=== PATIENT | male | born 1980 | race American Indian/Alaskan Native ===

== ENCOUNTER 2016-10-04 10:28 | Inpatient (IN) | payer OTHER ==
[2016-10-04 11:44] LABS: Hematocrit 45.7 % (35.5-45.6); Hemoglobin 15.2 gm/dl (11.8-15.2); Red Blood Count 4.44 M/mm3 (3.65-5.03); White Blood Count 5.5 K/mm3 (4.5-11.0)
[2016-10-04 11:45] LABS: Mean Corpuscular HGB Conc 33 % (32-34); Mean Corpuscular Hemoglobin 34 pg (28-32); Mean Corpuscular Volume 103 fl (84-94); Platelet Count 206 K/mm3 (140-440); Red Cell Distribution Width 14.5 % (13.2-15.2)
[2016-10-04 11:54] LABS: INR 0.99 (0.87-1.13); Partial Thromboplastin Time 26.4 Sec. (24.2-36.6)
[2016-10-04 11:55] LABS: Anion Gap 19 mmol/L; BUN/Creatinine Ratio 11.42; Blood Urea Nitrogen 8 mg/dL (9-20); Calcium 8.5 mg/dL (8.4-10.2); Carbon Dioxide 26 mmol/L (22-30); Chloride 102.6 mmol/L (98-107); Glucose 78 mg/dL (75-100); Potassium 4.4 mmol/L (3.6-5.0); Sodium 143 mmol/L (137-145)
--- NOTE | 2016-10-04 12:19 | XRay Report ---
CHEST 2 VIEWS INDICATION: Shortness of breath. COMPARISON: None similar. FINDINGS: PA and lateral chest radiographs demonstrate normal cardiomediastinal silhouette. Clear, mildly hyperexpanded lungs/COPD. Intact bones. CONCLUSION: No acute disease in the chest. Thank you for the opportunity to participate in this patient's care.
[2016-10-04 12:20] LABS: Alanine Aminotransferase 27 units/L (7-56); Albumin 4.4 g/dL (3.9-5); Albumin/Globulin Ratio 1.5 %; Alkaline Phosphatase 46 units/L (35-129); Creatine Kinase 1022 units/L (55-170); Total Protein 7.3 g/dL (6.3-8.2)
[2016-10-04 12:23] LABS: Bilirubin,Direct < 0.2 mg/dL (0-0.2)
--- NOTE | 2016-10-04 13:04 | Emergency Department Report ---
ED General Adult HPI - General Chief complaint: Dizziness Stated complaint: SOB/DIZZINESS/HEADACHE Time Seen by Provider: 10/04/16 12:46 Source: patient Mode of arrival: Ambulatory Limitations: No Limitations - History of Present Illness Initial comments: Patient complains of intermittent dizziness and weakness at least one episode of near syncope this morning. He was not aware of his bradycardia. However when questioned if he was ever told he had a slow heart rate before he stated no. He does have a history of DVT in approximately 2004. He admits that he was not compliant with his anticoagulants after taking it for a month and a half. He's had no recurrence. He does not complain of shortness of breath cough leg pain swelling chest pain pressure or tightness. According to the triage note he had shortness of breath and a headache this a.m. and "couldn't take a deep breath without pain in his chest and back". However, he is denying these symptoms to me. He does not complain of any tightness in the right lower leg as well as the triage note indicates. I can't explain these discrepancies. Patient is noted to have a normal d-dimer however. At this time the patient is not complaining of dizziness although his heart rate is in the 40s. -: Gradual, hour(s) Location: chest (per triage note but denies to me) Consistency: now resolved Improves with: none Worsens with: none Associated Symptoms: denies other symptoms Treatments Prior to Arrival: none - Related Data Previous Rx's Medication Instructions Recorded Last Taken Type traMADol [Ultram] 50 mg PO Q6HR PRN #10 tablet 05/02/13 Unknown Rx Allergies Allergy/AdvReac Type Severity Reaction Status Date / Time No Known Allergies Allergy Unverified 05/02/13 06:21 ED Review of Systems ROS: Stated complaint: SOB/DIZZINESS/HEADACHE Other details as noted in HPI Constitutional: denies: chills, fever Eyes: denies: eye pain, eye discharge, vision change ENT: denies: ear pain, throat pain Respiratory: denies: cough, shortness of breath, wheezing Cardiovascular: other (dizziness and near syncope). denies: chest pain, palpitations Endocrine: no symptoms reported Gastrointestinal: denies: abdominal pain, nausea, diarrhea Genitourinary: denies: urgency, dysuria Musculoskeletal: denies: back pain, joint swelling, arthralgia Skin: denies: rash, lesions Neurological: denies: headache, weakness, paresthesias Psychiatric: denies: anxiety, depression Hematological/Lymphatic: denies: easy bleeding, easy bruising ED Past Medical Hx - Past Medical History Hx Deep Vein Thrombosis: Yes - Social History Smoking Status: Current Every Day Smoker Substance Use Type: Alcohol, Marijuana - Medications Home Medications: Home Medications Medication Instructions Recorded Confirmed Last Taken Type traMADol [Ultram] 50 mg PO Q6HR PRN #10 tablet 05/02/13 Unknown Rx ED Physical Exam - General Limitations: No Limitations General appearance: alert, in no apparent distress - Head Head exam: Present: atraumatic, normocephalic - Eye Eye exam: Present: normal appearance, PERRL, EOMI. Absent: scleral icterus - ENT ENT exam: Present: mucous membranes moist - Neck Neck exam: Present: normal inspection - Respiratory Respiratory exam: Present: normal lung sounds bilaterally. Absent: respiratory distress - Cardiovascular Cardiovascular Exam: Present: regular rate, normal rhythm. Absent: systolic murmur, diastolic murmur, rubs, gallop - GI/Abdominal GI/Abdominal exam: Present: soft, normal bowel sounds. Absent: distended, tenderness, guarding, rebound, rigid - Rectal Rectal exam: Present: deferred - Extremities Exam Extremities exam: Present: normal inspection - Back Exam Back exam: Present: normal inspection - Neurological Exam Neurological exam: Present: alert, oriented X3, CN II-XII intact. Absent: motor sensory deficit - Psychiatric Psychiatric exam: Present: normal affect, normal mood - Skin Skin exam: Present: warm, dry, intact, normal color. Absent: rash ED Course Vital Signs 10/04/16 10/04/16 10/04/16 11:08 11:44 11:45 Temperature 98.4 F Pulse Rate 47 L 41 L 50 L Respiratory 16 13 13 Rate Blood Pressure 114/76 120/84 O2 Sat by Pulse 100 98 91 Oximetry - Reevaluation(s) Reevaluation #1: Discussed with Dr. Edouard. The patient will be admitted for evaluation of his near-syncope and symptomatic bradycardia. His laboratory evaluation is essentially normal. I will add thyroid functions. 10/04/16 13:38 ED Medical Decision Making - Lab Data Result diagrams: 10/04/16 11:20 10/04/16 11:29 Laboratory Results - last 24 hr 10/04/16 10/04/16 10/04/16 11:20 11:20 11:26 WBC 5.5 RBC 4.44 Hgb 15.2 Hct 45.7 H MCV 103 H MCH 34 H MCHC 33 RDW 14.5 Plt Count 206 PT 13.0 INR 0.99 APTT 26.4 D-Dimer 179.60 Sodium Potassium Chloride Carbon Dioxide Anion Gap BUN Creatinine Estimated GFR BUN/Creatinine Ratio Glucose Calcium Total Bilirubin 0.50 Direct Bilirubin < 0.2 AST 46 H ALT 27 Alkaline Phosphatase 46 Total Creatine Kinase 1022 H CK-MB (CK-2) 9.0 H CK-MB (CK-2) Rel Index 0.8 Troponin T < 0.010 NT-Pro-B Natriuret Pep 24.07 Total Protein 7.3 Albumin 4.4 Albumin/Globulin Ratio 1.5 10/04/16 11:29 WBC RBC Hgb Hct MCV MCH MCHC RDW Plt Count PT INR APTT D-Dimer Sodium 143 Potassium 4.4 Chloride 102.6 Carbon Dioxide 26 Anion Gap 19 BUN 8 L Creatinine 0.7 L Estimated GFR > 60 BUN/Creatinine Ratio 11.42 Glucose 78 Calcium 8.5 Total Bilirubin Direct Bilirubin AST ALT Alkaline Phosphatase Total Creatine Kinase CK-MB (CK-2) CK-MB (CK-2) Rel Index Troponin T NT-Pro-B Natriuret Pep Total Protein Albumin Albumin/Globulin Ratio - EKG Data -: EKG Interpreted by Me EKG shows normal: sinus rhythm, axis, intervals, QRS complexes, ST-T waves Rate: bradycardia - EKG Data Interpretation: other (there is a suggestion of increased voltage. Sinus bradycardia. There are repolarization abnormalities that are not usual in young black males/early repolarization) - Radiology Data interpreted by me: Chest x-ray shows no acute process Critical care attestation.: If time is entered above; I have spent that time in minutes in the direct care of this critically ill patient, excluding procedure time. ED Disposition Clinical Impression: Symptomatic bradycardia, Near syncope Disposition: OP ADMIT IP TO THIS HOSP Is pt being admited?: Yes Does the pt Need Aspirin: Yes Condition: Stable Referrals: PRIMARY CARE, [Primary Care Provider] - 3-5 Days Time of Disposition: 13:40
--- NOTE | 2016-10-04 13:39 | History and Physical Report ---
History of Present Illness Chief complaint: I felt dizzy and almost passed out History of present illness: 36 YO Male with DVT(5 years ago), Nicotine Dependence presents to ED for evaluation. Pt states that he was driving to work today and felt dizzy and lightheaded as if he was going to pass out. Pt states that symptoms lasted for several minutes without relief. Pt denies fever, chills, CP, Palpitations, NVD, Syncope, BRBPR, Trauma, vision changes, seizures, vertigo, or recent ill contacts. Pt seen and evaluated in ED and found to have a heart rate in the 40' s. Past History Past Medical History: DVT Past Surgical History: No surgical history, Other (reviewed) Social history: , lives with family, smoking. denies: alcohol abuse, prescription drug abuse, IV drug use Family history: hypertension Medications and Allergies Allergies Allergy/AdvReac Type Severity Reaction Status Date / Time No Known Allergies Allergy Unverified 05/02/13 06:21 Home Medications Medication Instructions Recorded Confirmed Last Taken Type Folic Acid/Multivit-Minerals 1 tab PO QDAY 10/04/16 10/04/16 Unknown History [Adult Multi Gummies] Review of Systems Constitutional: no weight loss, no weight gain, no fever, no chills Ears, nose, mouth and throat: no ear pain, no ear discharge, no tinnitis, no decreased hearing, no nose pain, no nasal congestion Cardiovascular: lightheadedness, no chest pain, no orthopnea, no palpitations, no edema, no syncope Respiratory: no cough, no cough with sputum, no excessive sputum, no hemoptysis , no shortness of breath Gastrointestinal: no nausea, no vomiting, no diarrhea, no constipation Genitourinary Male: no hematuria, no flank pain, no discharge, no urinary frequency, no urinary hesitancy Rectal: no pain, no incontinence, no bleeding Musculoskeletal: no neck stiffness, no neck pain, no shooting arm pain, no arm numbness/tingling, no low back pain, no shooting leg pain Integumentary: no rash, no pruritis, no redness, no sores, no wounds, no jaundice Neurological: no transient paralysis, no paralysis, no weakness, no parathesias , no numbness, no tingling Psychiatric: no anxiety, no memory loss, no change in sleep habits, no sleep disturbances, no insomnia Endocrine: no cold intolerance, no heat intolerance, no polyphagia, no excessive thirst, no polydipsia Hematologic/Lymphatic: no easy bruising, no easy bleeding Allergic/Immunologic: no urticaria, no allergic rhinitis, no wheezing Exam - Constitutional Vitals: Temp Pulse Resp BP Pulse Ox 98.4 F 50 L 13 120/84 91 10/04/16 11:08 10/04/16 11:45 10/04/16 11:45 10/04/16 11:45 10/04/16 11:45 General appearance: Present: mild distress - EENT Eyes: Present: PERRL ENT: hearing intact, clear oral mucosa - Neck Neck: Present: supple, normal ROM - Respiratory Respiratory effort: normal Respiratory: bilateral: CTA - Cardiovascular Rhythm: other (bradycardia) Heart Sounds: Present: S1 & S2. Absent: rub, click - Extremities Extremities: pulses symmetrical, No edema Peripheral Pulses: within normal limits - Abdominal General gastrointestinal: Present: soft, non-tender, non-distended, normal bowel sounds Male genitourinary: Present: normal - Integumentary Integumentary: Present: clear, warm, dry - Musculoskeletal Musculoskeletal: gait normal, strength equal bilaterally - Psychiatric Psychiatric: appropriate mood/affect, intact judgment & insight - Neurologic Neurologic: CNII-XII intact, moves all extremities Results - Labs CBC & Chem 7: 10/04/16 11:20 10/04/16 11:29 Labs: Abnormal lab results 10/04/16 10/04/16 10/04/16 Range/Units 11:20 11:26 11:29 Hct 45.7 H (35.5-45.6) % MCV 103 H (84-94) fl MCH 34 H (28-32) pg BUN 8 L (9-20) mg/dL Creatinine 0.7 L (0.8-1.5) mg/dL AST 46 H (5-40) units/L Total Creatine Kinase 1022 H (55-170) units/L CK-MB (CK-2) 9.0 H (0.0-4.0) ng/mL Assessment and Plan - Patient Problems (1) Symptomatic bradycardia Current Visit: Yes Status: Acute Plan to address problem: Cardiology consulted, telemetry, supportive care, cardiac enzymes, (2) Nicotine dependence Current Visit: Yes Status: Acute Qualifiers: Nicotine product type: N Substance use status: S Plan to address problem: supportive care, pt refused to pick quit date. (3) Near syncope Current Visit: Yes Status: Acute Plan to address problem: Secondary to bradycardia, supportive care, telemetry, fall percautions, (4) DVT prophylaxis Current Visit: Yes Status: Acute
--- NOTE | 2016-10-04 13:46 | Admit Criteria Form ---
Admission Criteria Documentation: TELEMETRY CARE Telemetry Admission Guidelines (Place 'X' for any and all applicable criteria): Admission to telemetry [A] may be indicated for ANY ONE of the following(1)(2)(3 )(4)(5): [X ]I. Cardiac disease, including ANY ONE of the following (9)(10)(11)(12)( 13): [ ]a) Postacute VA [ ]b) Low-risk patients with ST-segment elevation VA who have undergone successful percutaneous coronary intervention [ ]c) Unstable angina [ ]d) Suspected VA (until it is ruled out) [ ]e) Post cardiac surgery (first 48 to 72 hours unless complications occur) [X ]f) Acute arrhythmias (including significant tachycardia or bradycardia) [B] [ ]g) Firing of an implantable cardioverter defibrillator [C] [ ]h) Suspected pacemaker or implantable cardioverter defibrillator malfunction (10) [ ]i) New administration or adjustment of an antiarrhythmic drug [D ] [ ]j) Child admitted for acute congestive heart failure [ ]j) Long QT syndrome [ ]k) Advanced heart block (eg, second-degree Mobitz type II, third- degree heart block) [ ]l) Acute myocarditis or pericarditis [ ]m) Short-term (ambulatory or inpatient) monitoring after a cardiac procedure as indicated by ANY ONE of the following [E]: [ ]i) Electrophysiologic studies [ ]ii) Percutaneous coronary intervention with stent placement [ ]iii) Pacemaker placement with cardiac conduction defect [ ]iv) Implantable cardiac defibrillator placement [ ]II. Drug overdose or poisoning with substance that causes arrhythmias or QT prolongation (eg, phenothiazines, sympathomimetic agents, cyclic antidepressants, digitalis, antiarrhythmic drugs)(15) [ ]III. Short-term (ambulatory or inpatient) monitoring after therapeutic or diagnostic procedure requiring conscious sedation or anesthesia (eg, endoscopy, elective cardioversion) [ ]IV. Acute cerebrovascular even[F](18) [ ]V. Massive blood transfusion (eg, at least 10 units of packed red blood cells in 24 hours) [ ]. Variceal bleeding after endoscopy, sclerotherapy, or IV vasopressin [ ]VII. Uncorrected electrolyte abnormalities associated with an increased risk of dangerous arrhythmia [G]; examples include [ ]a) Hyperkalemia with attributable ECG changes [ ]b) Potassium greater than 6.5 mmol/L (mEq/L) in a patient without history of chronic renal disease [ ]c) Prolonged QT attributed to hypokalemia, hypomagnesemia, or hypocalcemia [ ]VIII.Unexplained syncope or other neurologic event suspected of being due to arrhythmia due to a finding that increases risk; examples include(19)(20)(21): [ ]a) High-risk ECG findings (eg, bifascicular block, bradycardia, abnormal QT interval, ventricular pre- excitation) [ ]b) History of previous syncope due to arrhythmia [ ]c) Abnormal ventricular function (eg, reduced ejection fraction ) [ ]d) Exertional or supine syncope [ ]e) Concerning syncope characteristics (eg, sudden loss of consciousness without prodrome) [ ]f) Family history of sudden [ ]g) Use of arrhythmogenic medication [ ]h) Suspected cardiac ischemia [ ]i) Known channelopathy (eg, long QT syndrome, Brugada syndrome, or catecholaminergic paroxysmal ventricular tachycardia) [ ]j) Known structural heart disease (eg, hypertrophic cardiomyopathy , severe valvular disease) [ ]k) Palpitations preceding syncope The original [employer] content created by [employer] has been revised. The portions of the content which have been revised are identified through the use of italic text or in bold, and [facility] [facility] has neither reviewed nor approved the modified material. All other unmodified content is copyright [employer]. Please see references footnoted in the original [employer] edition 2016 Admission Criteria Met: Yes
[2016-10-04 13:56] LABS: Urine Drugs of Abuse Note Disclamer
[2016-10-04 14:05] LABS: Bilirubin,Urine NEG (Negative); Blood,Urine NEG (Negative); Ketones,Urine TR mg/dL (Negative); Leukocyte Esterase,Urine NEG (Negative); Mucus,Urine 1+ /HPF; Nitrite,Urine NEG (Negative); Protein,Urine <15 mg/dL mg/dL (Negative); Sperm,Urine FEW /HPF (NP)
[2016-10-04] MEDS ORDERED: PROVENTIL IH PRN (14:40)
[2016-10-04] MEDS ORDERED: TYLENOL PO PRN (14:40)
--- NOTE | 2016-10-05 10:45 | Consultation ---
History of Present Illness Consult date: 10/05/16 Consult reason: bradycardia History of present illness: This is a 36yr old male with a remote history of lower extremity DVT. He came to this hospital with complaints of dizziness while driving to work. Patient describes dizziness as if his head is spinning. Dizziness worsens when he turns head from side to side. A 12-lead ECG shows marked sinus bradycardia, rate 45, otherwise is normal. Initial labs shows a normal TSH of 0.73. Cardiac consultation was requested Past History Past Medical History: DVT Past Surgical History: No surgical history, Other (reviewed) Social history: , lives with family, smoking. denies: alcohol abuse, prescription drug abuse, IV drug use Family history: hypertension Medications and Allergies Allergies Allergy/AdvReac Type Severity Reaction Status Date / Time No Known Allergies Allergy Unverified 05/02/13 06:21 Home Medications Medication Instructions Recorded Confirmed Last Taken Type Folic Acid/Multivit-Minerals 1 tab PO QDAY 10/04/16 10/04/16 Unknown History [Adult Multi Gummies] Active Meds: Active Medications Acetaminophen (Tylenol) 650 mg PO Q4H PRN PRN Reason: Pain MILD(1-3)/Fever >100.5/VARGAS Albuterol (Proventil) 2.5 mg IH Q4HRT PRN PRN Reason: Shortness Of Breath Physical Examination Vital Signs Temp Pulse Resp BP Pulse Ox 98.4 F 47 L 16 114/76 100 10/04/16 11:08 10/04/16 11:08 10/04/16 11:08 10/04/16 11:08 10/04/16 11:08 General appearance: no acute distress HEENT: Positive: PERRL Neck: Positive: trachea midline Cardiac: Positive: Bradycardia Results 10/04/16 11:20 10/04/16 11:29 Assessment and Plan Vertigo Sinus bradycardia, asymptomatic normal TSH
[2016-10-05 14:24] VITALS: BP 138/75
--- NOTE | 2016-10-05 18:03 | Discharge Summary ---
Providers - Providers Date of Admission: 10/04/16 14:40 Attending physician: ILYA KILGORE MD 10/04/16 14:49 Consult to Physician [CONS] Routine Consulting Provider: HEYDI MANZO Reason For Exam: symptomatic bradycardia Place consult to:: Cardiology Notified:: Y Was contact made?: Yes If yes, spoke with:: OFFICE CRYSTAL Time called:: 16:00 Primary care physician: VIRGILIO BATRES MD Hospitalization Condition: Stable Hospital course: 36M w no significant PMH who presented with vertigo which occured while he was driving to work. Based on his symptoms, he likely has BPPV, it resolved while he was in hospital. He was noted to have asymptomatic sinus bradycardia. He was seen by cardiology who did not think it was a contributor being faxed to his symptoms. He was recommended to formal cardiology and patient's and to see his doctors and outpatient if the symptoms return. Discharge diagnoses BPPV Vertigo Sinus bradycardia, asymptomatic Disposition: DC- TO HOME OR SELFCARE Core Measure Documentation - Palliative Care Palliative Care/ Comfort Measures: Not Applicable - Core Measures Any of the following diagnoses?: none Exam - Constitutional Vitals: Temp Pulse Resp BP Pulse Ox 98.9 F 90 18 138/75 98 10/05/16 12:51 10/05/16 12:51 10/05/16 12:51 10/05/16 12:51 10/05/16 12:51 General appearance: Present: no acute distress, well-nourished - EENT Eyes: Present: PERRL ENT: hearing intact, clear oral mucosa - Neck Neck: Present: supple, normal ROM - Respiratory Respiratory effort: normal Respiratory: bilateral: CTA - Cardiovascular Heart Sounds: Present: S1 & S2. Absent: rub, click - Extremities Extremities: pulses symmetrical, No edema Peripheral Pulses: within normal limits - Abdominal General gastrointestinal: Present: soft, non-tender, non-distended, normal bowel sounds Male genitourinary: Present: normal - Integumentary Integumentary: Present: clear, warm, dry - Musculoskeletal Musculoskeletal: gait normal, strength equal bilaterally - Psychiatric Psychiatric: appropriate mood/affect, intact judgment & insight - Neurologic Neurologic: CNII-XII intact, moves all extremities Plan Follow up with: PRIMARY CARE, [Primary Care Provider] - 3-5 Days Forms: Work/School Release Form
== END 2016-10-05 13:25 | disposition home or self-care (01) | DRG 149 ==
LOC: ED 10:28 → 4A 14:40
PROVIDERS: ADMIT Internal Medicine; ATTEND Internal Medicine
DX: H81.10 Benign paroxysmal vertigo, unspecified ear (principal); R00.1 Bradycardia, unspecified; R55 Syncope and collapse; F17.210 Nicotine dependence, cigarettes, uncomplicated; F12.90 Cannabis use, unspecified, uncomplicated; H83.09 Labyrinthitis, unspecified ear; Z86.718 Personal history of other venous thrombosis and embolism; Z72.89 Other problems related to lifestyle; Z82.49 Family history of ischemic heart disease and other diseases of the circulatory system
CPT/HCPCS: 36415; 71020; 80048; 80074; 80307; 81001; 82550; 82553; 83880; 84439; 84443; 84484; 85027; 85379; 85610; 85730; 93005; 93010; 99406